=== PATIENT | male | born 1970 | race Caucasian/White ===

== ENCOUNTER 2022-06-10 14:24 | Inpatient (IN) ==
--- NOTE | 2022-06-10 16:03 | Emergency Department Note ---
History of Present Illness General Chief complaint: Edema To Extremity Stated complaint: SWELLING LEFT LEG, RASH Time Seen by Provider: 06/10/22 15:57 Source: patient Mode of arrival: ambulatory Limitations: no limitations History of Present Illness Maximum Pain Intensity: 2 This patient is a 51-year-old male who is currently inpatient at the [facility], comes in after having some increasing redness of his left leg he has had a history of chronic lymphadenopathy status closely excision there but more in the upper thigh today was red and warm. He has been afebrile. They sent him over for evaluation. No history of DVT. He has a history of testicular cancer and 2005 and had lymphadenopathy since then he says leg is more swollen than normal but only a little bit. He has had no recent trauma or surgery no falls. He has just minimal soreness. Denies chest pain shortness of breath or palpitations. No blood or melena in his stool. No other complaints he has been on the [facility] for about a week and he is there for depression anxiety and feels like he is doing much better and hoping to go home soon. Denies any overdose. Home Medications Medication Instructions Recorded Confirmed Type aluminum-mag hydroxide-simethicone 30 ml PO QID PRN GI distress 06/10/22 06/10/22 History 200 mg-200 mg-20 mg/5 mL oral susp bupropion HCl 150 mg 24 hr tablet, 150 mg PO QAM 06/10/22 06/10/22 History extended release (Wellbutrin XL) ibuprofen 600 mg tablet 600 mg PO TID PRN Pain 06/10/22 06/10/22 History sennosides 8.6 mg-docusate sodium 1 tab PO DAILY PRN Constipation 06/10/22 06/10/22 History 50 mg tablet (Senna Plus) trazodone 50 mg tablet 150 mg PO HS PRN Sleep 06/10/22 06/10/22 History venlafaxine 150 mg 150 mg PO DAILY 06/10/22 06/10/22 History capsule,extended release 24 hr (Effexor XR) Allergies Allergy/AdvReac Type Severity Reaction Status Date / Time No Known Allergies Allergy Unverified 06/10/22 17:36 Past Med/Surg History Social History Smoking Status: Never smoker Feels Safe at Home: Yes Immunizations: Past medical history lymphadenopathy, prediabetes, testicular cancer, depression Social history[facility] is [facility] 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 Review of Systems A total of 10 systems reviewed and were otherwise negative Physical Exam Vital Signs Vital Signs - 24 hr 06/10/22 14:28 06/10/22 15:56 06/10/22 16:34 Temperature 36.5 C Temperature Source Temporal Artery Scan Pulse Rate 88 Pulse Rate [Finger] 84 Pulse Rhythm Regular Pulse Rhythm [Finger] Regular Pulse Strength [Finger] Normal Respiratory Rate 20 16 Respiratory Effort / Characteristics Non-Labored Non-Labored Respiratory Depth Normal Normal Respiratory Pattern Regular Blood Pressure 130/78 Blood Pressure [Right Arm] 123/70 Blood Pressure Mean 95 Blood Pressure Mean [Right Arm] 87 Pulse Oximetry 98 98 98 Oxygen Delivery Method Room Air Room Air Room Air Sepsis Recent Fever Within 48 Hours No Sepsis New/Unexplained Change in Mental Status N/A Sepsis Action Taken by Nursing No Action Required 06/10/22 17:00 Temperature Temperature Source Pulse Rate Pulse Rate [Finger] 75 Pulse Rhythm Pulse Rhythm [Finger] Regular Pulse Strength [Finger] Normal Respiratory Rate 18 Respiratory Effort / Characteristics Non-Labored Respiratory Depth Normal Respiratory Pattern Blood Pressure Blood Pressure [Right Arm] 124/84 Blood Pressure Mean Blood Pressure Mean [Right Arm] 97 Pulse Oximetry 99 Oxygen Delivery Method Room Air Sepsis Recent Fever Within 48 Hours Sepsis New/Unexplained Change in Mental Status Sepsis Action Taken by Nursing General: Well developed well nourished not ill-appearing middle-age male who appears in no acute distress, breathing comfortably on room air. Normal speech HEENT: Normal cephalic atraumatic. Pupils are equal round and reactive to light. Extraocular movements are intact. Oropharynx is pink with moist mucous membranes. No swelling of the mouth lips or tongue. Neck: Supple with a midline trachea. No meningeal signs or stiffness, no JVD or bruits. No Stridor. Chest: Clear to auscultation bilaterally. No wheezes or rhonchi. No increased work of breathing. Heart: Regular rate and rhythm without murmurs or gallops. Abdomen: Soft nontender, nondistended without rebound guarding or rigidity. Extremities: No cyanosis clubbing or edema. He has chronic edema in the left leg. Distally there is normal pulses. In the upper leg in the calf there is some mild redness posteriorly and tenderness. Spine/Back. Non tender to palpation. No CVA tenderness Skin: Good turgor without rashes. Neurologic exam: Cranial nerves two through 12 are intact. Motor and sensation are intact and symmetrical throughout. Course Administered Medications Heparin Sodium/Dextrose (Heparin Sodium/Dextrose) 25,000 units in 500 mls @ 0.02 mls/hr IV .Q24H PATRICIA; Protocol Stop: 07/10/22 17:14 Last Admin: 06/10/22 17:24 Dose: 1,650 units/hr, 33 mls/hr Documented By: OABeth Co-signed By: QGV Discontinued Medications Heparin Sodium (Porcine) (Heparin Sod (Porcine) 1000 Unit/Ml) 1 units IV NOW ONE Stop: 06/10/22 17:14 Last Admin: 06/10/22 17:24 Dose: 5,000 units Documented By: OABeth Co-signed By: QGV Heparin Sodium/Dextrose (Heparin Iv Adult Wt-Based Standard With Bolus Protocol) 1 each IV NOW STA; Protocol Stop: 06/10/22 16:58 Last Admin: 06/10/22 17:27 Dose: 1 each Documented By: OABeth Medical Decision Making Differential Diagnosis DVT, thrombophlebitis, cellulitis, trauma, neurovascular compromise, electrolyte or metabolic Medical Records Attestation: I reviewed the patient's medical records. Home Medications Current Medication List: was personally reviewed by me Laboratory Data Attestation: I reviewed the patient's lab results. Result diagrams: 06/10/22 15:35 06/10/22 15:35 Lab Results 06/10/22 06/10/22 06/10/22 Range/Units 15:35 15:35 15:35 WBC 10.64 (4.8-10.8) K/ul RBC 4.61 L (4.63-6.08) M/uL Hgb 13.5 L (14.0-18.0) g/dl Hct 41.1 (40.1-51.0) % MCV 89.2 (80.0-100.0) fL MCH 29.3 (25.0-34.0) pg MCHC 32.8 (32.0-36.0) g/dL RDW Std Deviation 44.1 (36.4-46.3) fL RDW Coeff of Baldomero 13.5 (11.5-14.5) % Plt Count 465 H (130-400) K/uL MPV 10.9 (9.4-12.4) fL Immature Gran % (Auto) 0.7 % Neut % (Auto) 68.4 % Lymph % (Auto) 18.1 % [place] % (Auto) 10.7 % Eos % (Auto) 1.7 % Baso % (Auto) 0.4 % Neut # (Auto) 7.28 H (1.4-6.5) K/uL Lymph # (Auto) 1.93 (1.2-3.4) K/uL [place] # (Auto) 1.14 H (0.24-0.82) K/uL Eos # (Auto) 0.18 (0-0.50) K/uL Baso # (Auto) 0.04 (0-0.2) K/uL Immature Gran # (Auto) 0.07 H (0.00-0.02) K/uL PT 11.8 (9.0-12.0) Seconds INR 1.1 (0.9-1.1) APTT 30.3 (21.0-31.0) Seconds PTT Ratio 1.1 Sodium 138 (136-145) mmol/L Potassium 3.6 (3.5-5.1) mmol/L Chloride 101 (98-107) mmol/L Carbon Dioxide 30 (21-32) mmol/L Anion Gap 7 (3-11) BUN 17 (6-23) mg/dl Creatinine 0.78 (0.6-1.4) mg/dl Est Cr Clr Drug Dosing 147.6 ml/min Est GFR ( Amer) 122.0 ml/min Est GFR (Non-Af Amer) 105.3 ml/min BUN/Creatinine Ratio 21.8 H (10-20) Glucose 83 (70-99(Fasting)) mg/dl Calcium 9.0 (8.5-10.1) mg/dl Total Bilirubin 0.5 (0.2-1.0) mg/dl AST 29 (13-39) U/L ALT 49 (7-52) U/L Alkaline Phosphatase 99 (34-104) U/L Total Protein 7.6 (6.0-8.3) gm/dl Albumin 3.7 (3.4-5.0) gm/dl Globulin 3.9 (2.5-4.0) gm/dl Albumin/Globulin Ratio 0.9 (0.9-2) SARS-CoV-2 (PCR) SARS-CoV-2, RNA, NAAT (NEGATIVE) 06/10/22 06/10/22 Range/Units 16:48 16:48 WBC (4.8-10.8) K/ul RBC (4.63-6.08) M/uL Hgb (14.0-18.0) g/dl Hct (40.1-51.0) % MCV (80.0-100.0) fL MCH (25.0-34.0) pg MCHC (32.0-36.0) g/dL RDW Std Deviation (36.4-46.3) fL RDW Coeff of Baldomero (11.5-14.5) % Plt Count (130-400) K/uL MPV (9.4-12.4) fL Immature Gran % (Auto) % Neut % (Auto) % Lymph % (Auto) % [place] % (Auto) % Eos % (Auto) % Baso % (Auto) % Neut # (Auto) (1.4-6.5) K/uL Lymph # (Auto) (1.2-3.4) K/uL [place] # (Auto) (0.24-0.82) K/uL Eos # (Auto) (0-0.50) K/uL Baso # (Auto) (0-0.2) K/uL Immature Gran # (Auto) (0.00-0.02) K/uL PT (9.0-12.0) Seconds INR (0.9-1.1) APTT (21.0-31.0) Seconds PTT Ratio Sodium (136-145) mmol/L Potassium (3.5-5.1) mmol/L Chloride (98-107) mmol/L Carbon Dioxide (21-32) mmol/L Anion Gap (3-11) BUN (6-23) mg/dl Creatinine (0.6-1.4) mg/dl Est Cr Clr Drug Dosing ml/min Est GFR ( Amer) ml/min Est GFR (Non-Af Amer) ml/min BUN/Creatinine Ratio (10-20) Glucose (70-99(Fasting)) mg/dl Calcium (8.5-10.1) mg/dl Total Bilirubin (0.2-1.0) mg/dl AST (13-39) U/L ALT (7-52) U/L Alkaline Phosphatase (34-104) U/L Total Protein (6.0-8.3) gm/dl Albumin (3.4-5.0) gm/dl Globulin (2.5-4.0) gm/dl Albumin/Globulin Ratio (0.9-2) SARS-CoV-2 (PCR) Cancelled SARS-CoV-2, RNA, NAAT NEGATIVE (NEGATIVE) Imaging Data Radiologist's Impression: Venous Doppler Study 06/10/22 15:53 US venous doppler LE LT CLINICAL HISTORY: leg swelling TECHNIQUE: Left lower extremity real-time compression venous ultrasound with Color Doppler imaging. Utilizing real-time ultrasonic imaging multiple real time high-resolution ultrasonic images with compression and noncompression maneuvers of the deep venous system in addition to color doppler imaging were performed from the common femoral vein through the proximal calf veins. COMPARISON: None available at the time of this dictation. FINDINGS: Occlusive thrombus is seen in the left common femoral vein, femoral vein, popliteal, peroneal. Nonocclusive thrombi are seen in the left posterior tibial vein. A superficial thrombus is seen in the lateral mid to distal thigh measuring over 10 cm in length. Impression: Extensive occlusive deep venous thrombosis extending from the left common femoral vein to the peroneal vein. Nonocclusive thrombus is seen in the posterior tibial vein and a superficial thrombosis in the thigh. ACT 112: Negative or not required by law. Electronically signed by: Yousuf Franco M.D. 06/10/2022 4:31 PM ECG Data Attestation: I personally reviewed and interpreted this ECG as follows: Indication: + weakness Rate (beats per minute): 70 Rhythm: + normal sinus ECG Intervals/blocks: + Normal QRS, + Normal QT and + Normal NM ECG [place]: + Normal ECG ST segments: + Normal ST segments ECG Findings: + LVH Comparison ECG Date: no prior available MDM Narrative This patient comes in as described above he was placed in room B 12. He is afebrile and a stable vital signs. I signed up for his chart went to see him he was getting wheeled over to get an ultrasound which has been ordered prior to me seeing him I talked to him briefly and he tells me his chronic edema. He was evaluated and the ultrasound was obtained. Ultrasound does show a very large DVT. He is otherwise asymptomatic is no chest pain or shortness of breath. Blood work was obtained EKG was also obtained he was reassessed. EKG shows no ischemic changes or ectopy. He has no signal electrolyte or metabolic abnormality. I did discuss the case with Dr. Grant and he agrees with putting him on standard heparin bolus and hourly rate. I did have them use a 5000 bolus rather than the weight-based 7000U. I communicated with his as well on the phone and let her know what was going on. I explained the risks and benefits of both the patient and his of getting heparinized they acknowledges he will be admitted for further anticoagulation and treatment and evaluation. Lab test was negative for COVID Continuous cardiac monitoring: Orders placed in EMR for continuous cardiac monitoring. Upon my interpreteration he was noted to be in normal sinus rhythm rate of 75. Impression & Plan DVT (deep venous thrombosis), Edema, Depression, History of testicular cancer, Lab test negative for COVID-19 virus Discharge Plan Visit Data Chief Complaint: Edema To Extremity Stated Complaint: SWELLING LEFT LEG, RASH ED Provider: Cong Bloom Discharge Problem: DVT (deep venous thrombosis), Edema, Depression, History of testicular cancer, Lab test negative for COVID-19 virus Forms Stand Alone Forms: My [facility] [employer] Prescriptions Prescriptions: No Action trazodone 50 mg tablet 150 mg PO HS PRN (Reason: Sleep) sennosides-docusate sodium [Senna Plus] 8.6-50 mg tablet 1 tab PO DAILY MDD 1 dose PRN (Reason: Constipation) bupropion HCl [Wellbutrin XL] 150 mg Tablet Extended Release 24 Hr 150 mg PO QAM venlafaxine [Effexor XR] 150 mg Capsule,Extended Release 24hr 150 mg PO DAILY ibuprofen 600 mg Tablet 600 mg PO TID PRN (Reason: Pain) alum-mag hydroxide-simeth [Antacid Plus] 200-200-20 mg/5 mL Suspension 30 ml PO QID PRN (Reason: GI distress) Referrals Referrals: PCP,NO [Primary Care Provider] -
--- NOTE | 2022-06-10 16:32 | Ultrasound Report ---
US venous doppler LE LT CLINICAL HISTORY: leg swelling TECHNIQUE: Left lower extremity real-time compression venous ultrasound with Color Doppler imaging. U tilizing real-time ultrasonic imaging multiple real time high-resolution ultrasonic images with compr ession and noncompression maneuvers of the deep venous system in addition to color doppler imaging we re performed from the common femoral vein through the proximal calf veins. COMPARISON: None available at the time of this dictation. FINDINGS: Occlusive thrombus is seen in the left common femoral vein, femoral vein, popliteal, peroneal. Nonocc lusive thrombi are seen in the left posterior tibial vein. A superficial thrombus is seen in the late ral mid to distal thigh measuring over 10 cm in length. Impression: Extensive occlusive deep venous thrombosis extending from the left common femoral vein to the peronea l vein. Nonocclusive thrombus is seen in the posterior tibial vein and a superficial thrombosis in th e thigh. ACT 112: Negative or not required by law. Electronically signed by: Yousuf Franco M.D. 06/10/2022 4:31 PM
[2022-06-10 16:46] LABS: Basophils # (auto) 0.04 K/uL (0-0.2); Basophils % (auto) 0.4 %; Eosinophils # (auto) 0.18 K/uL (0-0.50); Eosinophils % (auto) 1.7 %; Hematocrit (blood only) 41.1 % (40.1-51.0); Hemoglobin 13.5 g/dl (14.0-18.0); Immature Granulocytes # (auto) 0.07 K/uL (0.00-0.02); Immature Granulocytes % (auto) 0.7 %; Lymphocytes # (auto) 1.93 K/uL (1.2-3.4); Lymphocytes % (auto) 18.1 %; Mean Corpuscular Hemoglobin 29.3 pg (25.0-34.0); Mean Corpuscular Hgb Conc 32.8 g/dL (32.0-36.0); Mean Corpuscular Volume 89.2 fL (80.0-100.0); Mean Platelet Volume 10.9 fL (9.4-12.4); Monocytes # (auto) 1.14 K/uL (0.24-0.82); Monocytes % (auto) 10.7 %; Neutrophils # (auto) 7.28 K/uL (1.4-6.5); Neutrophils % (auto) 68.4 %; Platelet Count 465 K/uL (130-400); RDW Coefficient of Variation 13.5 % (11.5-14.5); RDW Standard Deviation 44.1 fL (36.4-46.3); Red Blood Count 4.61 M/uL (4.63-6.08); White Blood Count 10.64 K/ul (4.8-10.8)
[2022-06-10] MEDS ORDERED: Heparin IV Adult Wt-Based Standard WITH Bolus Protocol IV STA (16:57)
[2022-06-10 16:59] LABS: Albumin Globulin Ratio 0.9 (0.9-2); Albumin Level 3.7 gm/dl (3.4-5.0); BUN Creatinine Ratio 21.8 (10-20); Bilirubin,Total 0.5 mg/dl (0.2-1.0); Creatinine Clr Calc Pharmacy 147.6 ml/min; Est GFR (Non-African American) 105.3 ml/min; Globulin 3.9 gm/dl (2.5-4.0); Potassium 3.6 mmol/L (3.5-5.1); Total Protein 7.6 gm/dl (6.0-8.3)
[2022-06-10 17:02] LABS: INR 1.1 (0.9-1.1); Partial Thromboplastin Ratio 1.1; Partial Thromboplastin Time 30.3 Seconds (21.0-31.0); Prothrombin Time 11.8 Seconds (9.0-12.0)
[2022-06-10] MEDS ORDERED: HEPARIN SOD (PORCINE) 1000 UNIT/ML IV ONE (17:13)
[2022-06-10] MEDS: HEPARIN SODIUM/DEXTROSE 25,000 UNITS/500 ML BAG IV SCH (17:24)
--- NOTE | 2022-06-10 17:49 | History & Physical Report ---
Date of Service June 10, 2022 Assessment & Plan (1) DVT (deep venous thrombosis): (2) Edema: Plan: Present on admission for left lower extremity edema Doppler of lower extremities show Extensive occlusive deep venous thrombosis extending from the left common femoral vein to the peroneal vein. Nonocclusive thrombus is seen in the posterior tibial vein and a superficial thrombosis in the thigh. Started on IV heparin drip with bolus Case discussed with patient about the NOAC and Coumadin as well as side effect Continue monitor H&H and abnormal bleeding. Will monitor for sign of bleeding Depression Continue Effexor and Wellbutrin Will consult psych liaison Stable DVT prophylaxis on SCD CODE STATUS full code History of Present Illness Chief Complaint: Left foot sweeling Primary Care Provider: NO PCP 51 yo male with Hx of depression, chronic lymphadenopathy that being treated at the inpatient [facility] was sent to the ED to evaluation for Left LE swelling. Pt said that he had chronic left LE edema due to radiation therapy dated back to 2014 for testicular cancer. Pt said that about a weak ago he developed left groin pain. He said that today he saw his left LE swelling worst. He was sent to the ER from the [facility] for evaluation. He said that he has been doing well with therapy for his depression and was looking forward to be discharged in the next few days from the [facility]. He said that he has bnot been too active at the [facility] Denies any chest pain, palpitation, dizziness, shortness of breath. Allergies Allergy/AdvReac Type Severity Reaction Status Date / Time No Known Allergies Allergy Unverified 06/10/22 17:36 Home Medications Medication Instructions Recorded Confirmed Type aluminum-mag hydroxide-simethicone 30 ml PO QID PRN GI distress 06/10/22 06/10/22 History 200 mg-200 mg-20 mg/5 mL oral susp sennosides 8.6 mg-docusate sodium 1 tab PO DAILY PRN Constipation 06/10/22 06/10/22 History 50 mg tablet (Senna Plus) apixaban 5 mg tablet (Eliquis) 5 mg PO UD #74 tabs 06/11/22 Rx bupropion HCl 150 mg 24 hr tablet, 150 mg PO QAM 30 days #30 tabs 06/11/22 Rx extended release (Wellbutrin XL) venlafaxine 150 mg 150 mg PO BID 30 days #60 caps 06/11/22 Rx capsule,extended release 24 hr (Effexor XR) Past Med/Surg History Social History Smoking Status: Never smoker Hx Alcohol Use: No Hx Substance Use: No Preferred Language: Citizen Of [place] Communication Ability: Effective Elementary Reading Specialist Required: No Beliefs That Will Affect Care: None Current Living Situation: Spouse Feels Safe at Home: Yes Safety Concerns: Feels Safe At This Time Assistive Devices: None Review of Systems Review of Systems: All systems reviewed & are unremarkable except as noted in Subjective Physical Exam Physical Exam: General- No acute distress Head- atraumatic Eyes- PERRL, EOMI, ENT- oropharynx clear Neck- supple, no JVD Lungs- clear to auscultation Heart- regular rhythm; no murmur Abdomen- normal bowel sounds, soft, nontender Extremities- no calf tenderness, +left LE edema Neuro- alert, oriented x 3; PERRL, EOMI; no facial palsy; no dysarthria Skin- warm & dry Results & Data Results & Data ([facility]) Vital Signs (Past 12 Hours) Vital Signs Temp Pulse Pulse Resp BP BP Pulse Ox 06/10/22 17:00 75 18 124/84 99 06/10/22 16:34 98 06/10/22 15:56 84 16 123/70 98 06/10/22 14:28 36.5 C 88 20 130/78 98 O2 Del Method 06/10/22 17:00 Room Air 06/10/22 16:34 Room Air 06/10/22 15:56 Room Air 06/10/22 14:28 Room Air Diagnostic Findings Laboratory Results WBC 10.64 K/ul (4.8-10.8) 06/10/22 15:35 RBC 4.61 M/uL (4.63-6.08) L 06/10/22 15:35 Hgb 13.5 g/dl (14.0-18.0) L 06/10/22 15:35 Hct 41.1 % (40.1-51.0) 06/10/22 15:35 MCV 89.2 fL (80.0-100.0) 06/10/22 15:35 MCH 29.3 pg (25.0-34.0) 06/10/22 15:35 MCHC 32.8 g/dL (32.0-36.0) 06/10/22 15:35 RDW Std Deviation 44.1 fL (36.4-46.3) 06/10/22 15:35 RDW Coeff of Baldomero 13.5 % (11.5-14.5) 06/10/22 15:35 Plt Count 465 K/uL (130-400) H 06/10/22 15:35 MPV 10.9 fL (9.4-12.4) 06/10/22 15:35 Immature Gran % (Auto) 0.7 % 06/10/22 15:35 Neut % (Auto) 68.4 % 06/10/22 15:35 Lymph % (Auto) 18.1 % 06/10/22 15:35 [place] % (Auto) 10.7 % 06/10/22 15:35 Eos % (Auto) 1.7 % 06/10/22 15:35 Baso % (Auto) 0.4 % 06/10/22 15:35 Neut # (Auto) 7.28 K/uL (1.4-6.5) H 06/10/22 15:35 Lymph # (Auto) 1.93 K/uL (1.2-3.4) 06/10/22 15:35 [place] # (Auto) 1.14 K/uL (0.24-0.82) H 06/10/22 15:35 Eos # (Auto) 0.18 K/uL (0-0.50) 06/10/22 15:35 Baso # (Auto) 0.04 K/uL (0-0.2) 06/10/22 15:35 Immature Gran # (Auto) 0.07 K/uL (0.00-0.02) H 06/10/22 15:35 PT 11.8 Seconds (9.0-12.0) 06/10/22 15:35 INR 1.1 (0.9-1.1) 06/10/22 15:35 APTT 30.3 Seconds (21.0-31.0) 06/10/22 15:35 PTT Ratio 1.1 06/10/22 15:35 Sodium 138 mmol/L (136-145) 06/10/22 15:35 Potassium 3.6 mmol/L (3.5-5.1) 06/10/22 15:35 Chloride 101 mmol/L (98-107) 06/10/22 15:35 Carbon Dioxide 30 mmol/L (21-32) 06/10/22 15:35 Anion Gap 7 (3-11) 06/10/22 15:35 BUN 17 mg/dl (6-23) 06/10/22 15:35 Creatinine 0.78 mg/dl (0.6-1.4) 06/10/22 15:35 Est Cr Clr Drug Dosing 147.6 ml/min 06/10/22 15:35 Est GFR ( Amer) 122.0 ml/min 06/10/22 15:35 Est GFR (Non-Af Amer) 105.3 ml/min 06/10/22 15:35 BUN/Creatinine Ratio 21.8 (10-20) H 06/10/22 15:35 Glucose 83 mg/dl (70-99(Fasting)) 06/10/22 15:35 Calcium 9.0 mg/dl (8.5-10.1) 06/10/22 15:35 Total Bilirubin 0.5 mg/dl (0.2-1.0) 06/10/22 15:35 AST 29 U/L (13-39) 06/10/22 15:35 ALT 49 U/L (7-52) 06/10/22 15:35 Alkaline Phosphatase 99 U/L (34-104) 06/10/22 15:35 Total Protein 7.6 gm/dl (6.0-8.3) 06/10/22 15:35 Albumin 3.7 gm/dl (3.4-5.0) 06/10/22 15:35 Globulin 3.9 gm/dl (2.5-4.0) 06/10/22 15:35 Albumin/Globulin Ratio 0.9 (0.9-2) 06/10/22 15:35 SARS-CoV-2 (PCR) Cancelled 06/10/22 16:48 SARS-CoV-2, RNA, NAAT NEGATIVE (NEGATIVE) 06/10/22 16:48 Impressions Venous Doppler Study 06/10/22 15:53 US venous doppler LE LT CLINICAL HISTORY: leg swelling TECHNIQUE: Left lower extremity real-time compression venous ultrasound with Color Doppler imaging. Utilizing real-time ultrasonic imaging multiple real time high-resolution ultrasonic images with compression and noncompression maneuvers of the deep venous system in addition to color doppler imaging were performed from the common femoral vein through the proximal calf veins. COMPARISON: None available at the time of this dictation. FINDINGS: Occlusive thrombus is seen in the left common femoral vein, femoral vein, popliteal, peroneal. Nonocclusive thrombi are seen in the left posterior tibial vein. A superficial thrombus is seen in the lateral mid to distal thigh measuring over 10 cm in length. Impression: Extensive occlusive deep venous thrombosis extending from the left common femoral vein to the peroneal vein. Nonocclusive thrombus is seen in the posterior tibial vein and a superficial thrombosis in the thigh. ACT 112: Negative or not required by law. Electronically signed by: Yousuf Franco M.D. 06/10/2022 4:31 PM (1) DVT (deep venous thrombosis) Affected thrombotic vein of extremity: unspecified vein of extremity Chronicity: acute DVT location: lower extremity Laterality: left Qualified Code(s): I82.402 - Acute embolism and thrombosis of unspecified deep veins of left lower extremity (2) Edema Edema type: unspecified Qualified Code(s): R60.9 - Edema, unspecified
[2022-06-10] MEDS ORDERED: traZODone HCL 50 MG TAB PO PRN (20:59)
[2022-06-11 00:07] LABS: Partial Thromboplastin Ratio 2.1
[2022-06-11 00:13] LABS: Partial Thromboplastin Time 57.8 Seconds (21.0-31.0)
--- NOTE | 2022-06-11 06:22 | Electrocardiogram Report ---
Test Reason : Blood Pressure : / mmHG Vent. Rate : 070 BPM Atrial Rate : 070 BPM P-R Int : 144 ms QRS Dur : 084 ms QT Int : 394 ms P-R-T Axes : 036 -08 019 degrees QTc Int : 425 ms Normal sinus rhythm Minimal voltage criteria for LVH, may be normal variant Borderline ECG No previous ECGs available Confirmed by Lupillo Small ([id number]) on 06/11/2022 6:22:01 AM Referred By: REFERRED SELF Confirmed By:Lupillo Small
[2022-06-11 08:45] LABS: Hematocrit (blood only) 36.5 % (40.1-51.0); Hemoglobin 12.2 g/dl (14.0-18.0); Mean Corpuscular Hemoglobin 29.3 pg (25.0-34.0); Mean Corpuscular Hgb Conc 33.4 g/dL (32.0-36.0); Mean Corpuscular Volume 87.7 fL (80.0-100.0); Mean Platelet Volume 10.5 fL (9.4-12.4); Platelet Count 394 K/uL (130-400); RDW Coefficient of Variation 13.3 % (11.5-14.5); Red Blood Count 4.16 M/uL (4.63-6.08); White Blood Count 8.01 K/ul (4.8-10.8)
[2022-06-11] MEDS ORDERED: buPROPion XL 150 MG TABCR PO SCH (09:00)
[2022-06-11] MEDS ORDERED: VENLAFAXINE HCL XR 150 MG CAPXR PO SCH ×3 (09:00→14:00)
[2022-06-11] MEDS: HEPARIN SODIUM/DEXTROSE 25,000 UNITS/500 ML BAG IV SCH (09:06)
[2022-06-11 09:42] LABS: Partial Thromboplastin Ratio 1.8
[2022-06-11 09:44] LABS: Appearance Urine Clear (Clear); Bilirubin Urine Negative (Negative); Blood Urine Negative (Negative); Color Urine Yellow; Glucose Urine UA Negative (Negative); Ketones Urine Negative (Negative); Leukocyte Esterase Urine Negative (Negative); Nitrite Urine Negative (Negative); Protein Urine Negative (Negative); Specific Gravity Urine 1.014 (1.000-1.030); Urobilinogen Urine Negative (Negative); pH Urine 7.5 (4.5-7.5)
[2022-06-11 09:59] LABS: Partial Thromboplastin Time 50.5 Seconds (21.0-31.0)
[2022-06-11] MEDS ORDERED: APIXABAN 5 MG TABLET PO SCH (16:15)
--- NOTE | 2022-06-17 22:45 | Discharge Summary ---
Date of Service June 11, 2022 Admission HPI Per Admitting Provider 51 yo male with Hx of depression, chronic lymphadenopathy that being treated at the inpatient [facility] was sent to the ED to evaluation for Left LE swelling. Pt said that he had chronic left LE edema due to radiation therapy dated back to 2014 for testicular cancer. Pt said that about a weak ago he developed left groin pain. He said that today he saw his left LE swelling worst. He was sent to the ER from the [facility] for evaluation. He said that he has been doing well with therapy for his depression and was looking forward to be discharged in the next few days from the [facility]. He said that he has bnot been too active at the [facility] Denies any chest pain, palpitation, dizziness, shortness of breath. Discharge Data Allergies Allergy/AdvReac Type Severity Reaction Status Date / Time No Known Allergies Allergy Unverified 06/10/22 17:36 Consultations 06/10/22 16:59 ED Decision to Admit Stat 06/10/22 20:59 Consult Behavioral Health Liaison Routine Ordered Studies 06/10/22 15:53 US venous doppler LE LT Stat Hospital Course (1) DVT (deep venous thrombosis): (2) Edema: Present on admission for left lower extremity edema Doppler of lower extremities show Extensive occlusive deep venous thrombosis extending from the left common femoral vein to the peroneal vein. Nonocclusive thrombus is seen in the posterior tibial vein and a superficial thrombosis in the thigh. Started on IV heparin drip with bolus Case discussed with patient about the NOAC and Coumadin as well as side effect Continue monitor H&H and abnormal bleeding. Will monitor for sign of bleeding Depression Continue Effexor and Wellbutrin Will consult psych liaison Stable DVT prophylaxis on SCD CODE STATUS full code Discharge Plan Discharge Items Patient Disposition: Home - Self-Care Reason For Visit: LEFT LE EDEMA Discharge Diagnosis: DVT (deep venous thrombosis): Edema: Depression Activity: Resume your previous activity Non-emergency contact: Primary Care Provider Call non-emergency contact if: you have any medication questions Follow-up/Referrals: [facility] [Other] (Appointment for psychiatric medication managment on 06/20/2022 @ 3:00 PM) Gentry Enrique MD [Outside Practitioners] - (The office will call you with a hospital appointment. ) Diet: Regular Addtl Attending Provider Instructions: Follow up with your primary care provider within 1 week Follow up with psychiatry on 06/20/22 @ 3PM for psychiatric medication management (Your psych provider will continue to adjust your Effexor and Bupropion at the next follow up appointment) Monitor for any abnormal bleeding such as blood in urine or stool Seek urgent medical attention if you develop any suicidal ideation, hallucination or worsening depression Fall precaution Eliquis 10mg every 12 hours for 7 days, then on day 8 take 5mg twice day First dose of Eliquis was given in the hospital. next dose will be after 12hrs ( 5am) Medication Instructions: Eliquis Your condition is typically treated with an anticoagulant. Anticoagulants will thin your blood to help prevent new clots. You should take her medication exactly as directed. Never skip a dose. Never take a double dose. If you miss a dose, take it as soon as you remember. Avoid NSAIDs (Motrin, Aleve, Naproxen, Ibuprofen, Advil, Meloxicam,..) due to risks of bleeding Call your Primary Care doctor if you experience any of the following: Swelling or Pain in your leg Sudden, continuous pain deep in a muscle Pain that worsens when you are active or when you stand still for a long time Chest Pain Sudden Shortness of Breath Rapid or pounding heart beat Fainting Dizziness Cough with blood or bloody sputum Sweating more than normal Bruises Heavy or uncontrolled bleeding Blood in your urine, stool or vomit Black or tarry stools Caring for Your Self at Home: Avoid sitting, standing or lying down for long periods without moving your legs and feet When traveling by car, stop to get out and move around at least once every 3 hours On long airplane, train or bus rides, get up and move around when possible If you can't get up, wiggle your toes and tighten your calves to keep your blood moving Follow Up with your provider within 1 week It is important for you to keep your follow up appointments with your medical provider. Pending Studies at Discharge: No Stand-Alone Forms: [facility] [employer], Smoking Cessation Medications and DC Order Prescriptions: New Eliquis 5 mg tablet 5 mg PO UD Qty: 74 0RF Rx Instructions: take 10mg twice a day for 7 days, then after 7 days take 5 mg twice Continued sennosides-docusate sodium [Senna Plus] 8.6-50 mg tablet 1 tab PO DAILY MDD 1 dose PRN (Reason: Constipation) alum-mag hydroxide-simeth 200-200-20 mg/5 mL Suspension 30 ml PO QID PRN (Reason: GI distress) bupropion HCl [Wellbutrin XL] 150 mg Tablet Extended Release 24 Hr 150 mg PO QAM 30 Days Qty: 30 0RF Changed venlafaxine [Effexor XR] 150 mg Capsule,Extended Release 24hr 150 mg PO BID 30 Days Qty: 60 0RF Discontinued ibuprofen 600 mg Tablet 600 mg PO TID PRN (Reason: Pain) Discharge Orders: Discharge Order (Routine); Ordered 06/11/22 Ordered By: Irving López Admission Data Admit Date/Time: 06/10/22 20:57 Attending Provider: Irving López Admit Provider: Irving López Primary Care Provider: PCP,NO Other Providers: Cindy Grant I. Other Interventions: Discharge Summary Assessment (RN) Last Done: 06/11/22 16:47
== END 2022-06-11 17:28 | disposition home or self-care (01) | DRG 301 ==
LOC: ED 14:24 → 3W 20:19